=== PATIENT | female | born 1960 | race American Indian/Alaskan Native ===

== ENCOUNTER 2022-06-20 04:16 | Day surgery (SDC) | payer OTHER ==
[2022-06-16 12:51] VITALS: BMI 25.7
[~2022-06-20 04:16] MED LIST: BUPIVACAINE HCL/PF 0.25% (2.5MG/ML) 10 ML VIAL IJ ONE; DEXAMETHASONE SOD PHOSPHATE 10 MG/1 ML VIAL IVPUSH ONE; IOHEXOL 180 MG/1 ML ML IJ ONE; LIDOCAINE HCL 1%, 10 MG/ML (20ML VIAL) NR ONE
[2022-06-20] MEDS ORDERED: LIDOCAINE HCL/PF 1% SDV 5ML VIAL ONE (07:19)
[2022-06-20] MEDS ORDERED: BUPIVACAINE HCL/PF 0.25% (2.5MG/ML) 10 ML VIAL ONE (07:19)
[2022-06-20] MEDS ORDERED: DEXAMETHASONE SOD PHOSPHATE 10 MG/1 ML VIAL ONE (07:19)
[2022-06-20 10:19] VITALS: BP 104/58; PULSE 65; RESP 18; TEMP 98.7
== END 2022-06-20 12:05 | disposition home or self-care (01) ==
LOC: JASU-SURG 04:16
PROVIDERS: ATTEND Physical Medicine & Rehabilitation
PROC: 3E0R33Z Introduction of Anti-inflammatory into Spinal Canal, Percutaneous Approach (ICD-10-PCS; principal; 2022-06-20 11:30)
DX: Z53.9 Procedure and treatment not carried out, unspecified reason (principal)
CPT/HCPCS: C9803-CS; J1100; U0003; U0005

== ENCOUNTER 2022-11-07 05:33 | Day surgery (SDC) | payer OTHER ==
[2022-11-03 09:45] VITALS: BMI 26.8
[2022-11-07] MEDS ORDERED: MIDAZOLAM HCL 2 MG/2 ML SINGLE DOSE VIAL ONE (13:27)
[2022-11-07] MEDS ORDERED: PROPOFOL 40 ML ONE (13:27)
[2022-11-07] MEDS ORDERED: LIDOCAINE HCL/PF 1% SDV 5ML VIAL ONE ×2 (13:35→13:57)
[2022-11-07] MEDS ORDERED: ceFAZolin 2 GRAM PREMIX BAG IVPB ONE (13:49)
[2022-11-07] MEDS ORDERED: ONDANSETRON 4 MG/2 ML VIAL ONE (14:13)
[2022-11-07] MEDS ORDERED: LIDOCAINE 1% P/F 10 MG/ML VIAL PNB ONE (14:24)
[2022-11-07] MEDS ORDERED: BENZOIN/ALOE VERA/STORAX/TOLU 58 ML BOTTLE ONE (14:41)
[2022-11-07 15:23] VITALS: TEMP 97.7
[2022-11-07 16:20] VITALS: BP 130/70; PULSE 70; RESP 16
== END 2022-11-07 16:20 | disposition home or self-care (01) ==
LOC: JASU-SURG 05:33
PROVIDERS: ATTEND Physical Medicine & Rehabilitation
PROC: 00HU3MZ Insertion of Neurostimulator Lead into Spinal Canal, Percutaneous Approach (ICD-10-PCS; principal; 2022-11-07 11:00)
DX: M47.26 Other spondylosis with radiculopathy, lumbar region (principal); M96.1 Postlaminectomy syndrome, not elsewhere classified; M54.59 Other low back pain
CPT/HCPCS: 63650; C1778; 76000-TC-FY; C1897